=== PATIENT | male | born 1970 | race Caucasian/White ===

== ENCOUNTER 2021-11-29 17:20 | Inpatient (IN) | payer MEDICAID, OTHER ==
[~2021-11-29] VITALS: Ht 172.7 cm; Wt 81.6 kg
[2021-11-29 19:06] LABS: HEMATOCRIT 35.9 % (36.7-47.1); MEAN CORPUSCULAR HEMOGLOBIN 20.9 uug (23.8-33.4); MEAN CORPUSCULAR VOLUME 64.7 fL (73.0-96.2); PLATELET COUNT (AUTO) 114 K/uL (152-348)
[2021-11-29 19:16] LABS: CARBON DIOXIDE 27 mmol/L (21-32); CHLORIDE 95 mmol/L (98-107); CREATININE 1.6 mg/dL (0.6-1.3); GLUCOSE 155 mg/dL (74-106); POTASSIUM 3.8 mmol/L (3.5-5.1); UREA NITROGEN, BLOOD 21 mg/dL (7-18)
[2021-11-29 19:28] LABS: ALANINE AMINOTRANSFERASE 24 U/L (16-63); ALKALINE PHOSPHATASE 94 U/L (50-136); ASPARTATE AMINOTRANSFERASE 13 U/L (15-37); BILIRUBIN,DIRECT 0.7 mg/dL (0.0-0.2); BILIRUBIN,TOTAL 1.9 mg/dL (0.2-1.0); TOTAL PROTEIN, SERUM 7.5 g/dL (6.4-8.2)
[2021-11-29] MEDS ORDERED: IV NS 1000 ML 1,000 ML IV ONE ×3 (19:30→23:45)
--- NOTE | 2021-11-29 19:37 | NUR ---
ultrasound at bedside for pt.
[2021-11-29] MEDS ORDERED: SWABABLE VALVE TRANSFER SET EA MC ONE (19:42)
[2021-11-29] MEDS ORDERED: IOHEXOL 300MG/ML 100 ML INFUS..BTL ONE (19:42)
[2021-11-29] MEDS ORDERED: IV NORMAL SALINE 250 ML IV ONE (19:43)
[2021-11-29] MEDS ORDERED: levoFLOXacin 500 MG/D5W 100ML PIGGYBACK IV ONE (20:15)
--- NOTE | 2021-11-29 21:08 | NUR ---
spoke with [facility] ER clerk rating to call [facility] for admission.
--- NOTE | 2021-11-29 21:33 | NUR ---
DR. James at bedside speaking with the bedside.
--- NOTE | 2021-11-29 21:48 | NUR ---
was updated by [facility] that we are waiting on the business case analyst from [facility] to call us back.
--- NOTE | 2021-11-29 22:08 | NUR ---
call from October at [phone] states we need to fax clinicals and covid results and that pt is stable for tr. pt to go to [facility].
--- NOTE | 2021-11-29 23:28 | NUR ---
Dr. Ribera speaking with Dr. Cormier from [facility].
[2021-11-29] MEDS ORDERED: levoFLOXacin 500 MG/D5W 100 ML ONE (23:42)
--- NOTE | 2021-11-30 01:04 | NUR ---
multiple calls placed to counseling case manager of [facility] by [facility] davis. voice mail box is full, when a call was placed to [facility] they state they have no beds available. This information was relayed to the pt and his .
--- NOTE | 2021-11-30 01:33 | NUR ---
call placed to October at [phone] high risk case manager for [facility]. voicemail box is full unable to leave a message.
--- NOTE | 2021-11-30 01:36 | NUR ---
was informed by the administrative assistant front desk that there is authorization to keep the pt. here.
--- NOTE | 2021-11-30 01:36 | NUR ---
call to [facility] for admission.
[2021-11-30] MEDS ORDERED: MORPHINE SULFATE 2 MG/1 ML DISP.SYRIN IV PRN (02:00)
[2021-11-30] MEDS ORDERED: ONDANSETRON 4 MG/2 ML VIAL IV PRN (02:00)
[2021-11-30] MEDS ORDERED: hydrALAZINE HCL 20 MG/1 ML VIAL IV PRN (02:00)
[2021-11-30] MEDS ORDERED: ACETAMINOPHEN 325 MG TABLET PO PRN (02:00)
--- NOTE | 2021-11-30 03:24 | NUR ---
report given to Gamal CAMARILLO pt to go to room 301a.
--- NOTE | 2021-11-30 04:00 | NUR ---
received patient from er. Regalado. ambulatory. sinus tachy HR 104. on rm Addendum: 11/30/21 at 0604 by OWEN HI RN on room air O2 sat 95%. temp[ 98.9. with left AC 20g saline lock.
--- NOTE | 2021-11-30 04:07 | NUR ---
pt transported to room 301A via [facility] with all belongings. [facility]. RN Gamal in room to receive the pt.
[2021-11-30 04:49] VITALS: BP 96/63
[2021-11-30] MEDS: IV NS 1000 ML 1,000 ML IV SCH ×3 (05:44→22:03)
[2021-11-30] MEDS: CIPROFLOXACIN IV 400 MG in PREMIXED 1 EACH IV SCH ×2 (08:35→21:58)
[2021-11-30] MEDS: HEPARIN SODIUM,PORCINE 5,000 UNITS/ML VIAL SQ SCH ×2 (09:00→18:06)
[2021-11-30] MEDS ORDERED: LIDOCAINE 2% (GLYDO= UROJET) 10 ML JELLY MM PRN (11:00)
--- NOTE | 2021-11-30 11:12 | NUR ---
dr. singh saw and examined the pt, stated if pt having difficulty urinating, may do in/out catheter (no maria cath) and apply urojet 10s prior to maria cath.
--- NOTE | 2021-11-30 11:37 | NUR ---
pt states he's feeling much better and urinating better today than yesterday. does not want catheter or pain medication at this time. at bedside visiting.
[2021-11-30 12:47] VITALS: BP 107/66
[2021-11-30] MEDS ORDERED: BENA10TA74 PO (13:12)
[2021-11-30 16:00] VITALS: BP 118/71
[2021-11-30 17:34] LABS: *BILIRUBIN,URIN NEGATIVE (NEGATIVE); *CLARITY,URINE CLEAR (CLEAR); *COLOR,URINE YELLOW (YELLOW); *KETONES,URINE NEGATIVE (NEGATIVE); LEUKOCYTE ESTERASE ,URINE NEGATIVE (NEGATIVE); NITRITE, URINE NEGATIVE (NEGATIVE); UGLUCOSE NEGATIVE (NEGATIVE)
[2021-11-30 17:43] LABS: *BLOOD, URINE TRACE (NEGATIVE)
[2021-11-30 18:25] LABS: *CREATININE,URINE 84.2 mg/dL (30-125); *URINE TOTAL PROTEIN RANDOM 44.1 mg/dL (<150/24HR)
--- NOTE | 2021-11-30 18:25 | NUR ---
pt alert and ambulatory, pleasant. denies sob or pain. voiding freely, no hematuria noted. lac iv leaking, reinserted on right wrist 20g with good backflow. he is comfortable, needs attended.
[2021-11-30 20:00] VITALS: BP 106/66
[2021-11-30 23:20] LABS: BACTERIA,URINE NONE SEEN /HPF (NONE SEEN); RBC,URINE 0-3 /HPF (0-3); SQUAMOUS EPITHELIAL CELL,UR FEW /HPF (NONE SEEN); WBC,URINE 0-3 /HPF (0-3)
[2021-12-01 04:00] VITALS: BP 117/62
--- NOTE | 2021-12-01 05:11 | NUR ---
Received to care, in room with family. Continues to deny pain or difficulty urinating. IV NS continues to infuse to right wrist. Slept well all night. Call light in reach. No distress, noted.
--- NOTE | 2021-12-01 05:50 | NUR ---
Bladder scan performed on patient, and showed 77 ml residual. He reports that he is voiding well, but is experiencing discomfort when doing so, but discomfort is way less than he experienced previously.
[2021-12-01 06:45] LABS: HEMATOCRIT 28.1 % (36.7-47.1); MEAN CORPUSCULAR VOLUME 64.4 fL (73.0-96.2); PLATELET COUNT (AUTO) 99 K/uL (152-348)
[2021-12-01 07:15] LABS: BILIRUBIN,TOTAL 0.8 mg/dL (0.2-1.0); CREATININE 0.9 mg/dL (0.6-1.3); MAGNESIUM 1.8 mg/dL (1.8-2.4); PHOSPHOROUS 2.6 mg/dL (2.5-4.9); POTASSIUM 3.4 mmol/L (3.5-5.1); TOTAL PROTEIN, SERUM 6.5 g/dL (6.4-8.2)
[2021-12-01 07:54] LABS: NEUTROPHILS % (MANUAL) 0 % (42-75)
[2021-12-01] MEDS: HEPARIN SODIUM,PORCINE 5,000 UNITS/ML VIAL SQ SCH ×2 (08:26→17:19)
[2021-12-01] MEDS: CIPROFLOXACIN IV 400 MG in PREMIXED 1 EACH IV SCH (08:46)
[2021-12-01] MEDS ORDERED: BENAZEPRIL HCL 10 MG TABLET PO SCH (09:00)
[2021-12-01 12:00] VITALS: BP 113/69
[2021-12-01] MEDS ORDERED: POTASSIUM PHOSPHATE MM 15 MMOL in IV NORMAL SALINE 250 ML IV ONE (12:00)
[2021-12-01] MEDS ORDERED: CIPR500T5 PO (13:27)
[2021-12-01] MEDS ORDERED: TAMS-3 PO (13:27)
[2021-12-01 16:00] VITALS: BP 101/64
[2021-12-02 08:06] LABS: A/G RATIO 0.9 (0.7-1.7); ALBUMIN 2.6 g/dL (2.9-4.4); ALPHA-1-GLOBULIN 0.4 g/dL (0.0-0.4); ALPHA-2-GLOBULIN 0.9 g/dL (0.4-1.0); BETA GLOBULIN 0.9 g/dL (0.7-1.3); GAMMA GLOBULIN 0.8 g/dL (0.4-1.8); M-SPIKE Not Observed g/dL (Not Observed)
[2021-12-02 21:06] LABS: *GC NAA Negative (Negative)
[2021-12-05 01:06] LABS: *TRIC.VAG. NAA Negative (Negative)
== END 2021-12-01 18:35 | disposition home or self-care (01) | DRG 501 ==
LOC: ER 17:22 → MEDSURG3 11-30 03:35
PROVIDERS: ADMIT Internal Medicine; ATTEND Nurse Practitioner Acute Care
DX: N41.0 Acute prostatitis (principal); N17.0 Acute kidney failure with tubular necrosis; E11.9 Type 2 diabetes mellitus without complications; F17.210 Nicotine dependence, cigarettes, uncomplicated; I45.10 Unspecified right bundle-branch block; I10 Essential (primary) hypertension; Z20.822 Contact with and (suspected) exposure to COVID-19; N45.2 Orchitis; R39.198 Other difficulties with micturition
CPT/HCPCS: 36415; 70030-TC; 71045; 76870; 83735; 83970; 84100; 84155; 84156; 84165; 84300; 84484; 85025; 87040; 87077; 87086; 87491; 93005; A4663; G0378; J0744; J1644; J1956; J3490; J7040; Q9967